=== PATIENT | male | born 1980 | race Caucasian/White ===

== ENCOUNTER 2023-03-24 16:39 | Emergency (ER) | payer OTHER | END 2023-03-24 17:25 | disposition home or self-care (01) | LOC: CSHERS 16:39 | DX: K42.9 Umbilical hernia without obstruction or gangrene (principal); I10 Essential (primary) hypertension; E03.9 Hypothyroidism, unspecified; E78.00 Pure hypercholesterolemia, unspecified; F17.220 Nicotine dependence, chewing tobacco, uncomplicated | CPT/HCPCS: 99283 ==